=== PATIENT | female | born 1980 | race Caucasian/White ===

== ENCOUNTER 2016-06-29 08:00 | Inpatient (IN) | payer MEDICAID ==
[~2016-06-29] VITALS: Ht 152.4 cm; Wt 80.0 kg
[~2016-06-29 08:00] MED LIST: ACET500C5 PO; BISA10SU58 PR; HYDR-3498 PO; ONDA4TAB8 PO; POLY17PO6 PO; PREN1TAB17 PO; TYL500 PO
[2016-06-29 10:00] LABS: ADD SCAN DIFF NO
[2016-06-29] MEDS ORDERED: MISOPROSTOL 200 MCG TAB PR PRN (10:00)
[2016-06-29] MEDS ORDERED: OXYTOCIN 30 UNITS/LR 500 ML IV SCH ×2 (10:00)
[2016-06-29] MEDS ORDERED: LIDOCAINE 1% (MPF) 30 ML INJ INJ PRN (10:00)
[2016-06-29] MEDS ORDERED: METHYLERGONOVINE 0.2 MG INJ IM PRN (10:00)
[2016-06-29] MEDS ORDERED: CARBOPROST 250 MCG INJ IM PRN (10:00)
[2016-06-29] MEDS ORDERED: DINOPROSTONE 10 MG VAG SUPP VAG ONE (10:00)
[2016-06-29] MEDS ORDERED: LACTATED RINGER'S 1,000 ML IV PRN (10:00)
[2016-06-29] MEDS ORDERED: BUTORPHANOL 2 MG INJ IV PRN (10:00)
[2016-06-29] MEDS ORDERED: OXYTOCIN 30 UNITS/LR 500 ML IV PRN (10:00)
[2016-06-29 10:08] LABS: BASOPHILS % 0.1 % (0.0-2.0); EOSINOPHILS # 0.1 10^3/ul (0.0-0.5); EOSINOPHILS % 1.7 % (0.0-7.0); HEMATOCRIT 34.9 % (37.0-47.0); HEMOGLOBIN 11.5 g/dl (12.0-16.0); LYMPHOCYTES # 1.8 10^3/ul (0.8-2.9); LYMPHOCYTES % 21.7 % (15.0-51.0); MEAN CORPUSCULAR HEMOGLOBIN 30.3 pg (29.0-33.0); MEAN CORPUSCULAR VOLUME 92.1 fl (82.0-101.0); MONOCYTE # 0.9 10^3/ul (0.3-0.9); MONOCYTES % 11.1 % (0.0-11.0); NEUTROPHIL # 5.2 10^3/ul (1.6-7.5); NEUTROPHILS % 63.8 % (39.0-77.0); PLATELET COUNT 221 10^3/UL (140-415); RED BLOOD COUNT 3.79 10^6/ul (4.20-5.40); RED CELL DISTRIBUTION WIDTH 13.6 % (11.5-14.5); WHITE BLOOD COUNT 8.1 10^3/ul (4.8-10.8)
[2016-06-29] MEDS: LACTATED RINGER'S 1,000 ML IV SCH ×2 (10:28→21:07)
[2016-06-29 10:30] LABS: INR 1.04; PROTIME 13.6 Sec (12.2-14.2); PT RATIO 1.1
[2016-06-29 10:39] VITALS: Ht 152.4 cm; Wt 80.0 kg
--- NOTE | 2016-06-29 17:13 | HP ---
Date/Time of Note Date/Time of Note DATE: 06/29/16 TIME: 17:10 OB - History Hx of Present Free Text/Dictation admitted for elective induction Last Menstrual Period: Oct 02, 2015 Estimated Due Date: Jun 27, 2016 : 3 Para: 2 Care: Good Care Ultrasounds: Normal mid trimester US Obstetrical Complications: None Medical Complications: None Past Family/Social History * Past Medical, Surgical, Family and Obstetric Histories reviewed from chart. Blood Type: B+ Rubella: immune RPR/VDRL: Negative GBS Status: Negative HBsAG: Negative OB Admission Exam Physical Exam HEENT: WNL Heart: Rhythm Normal Lungs: Clear, Equal Abdomen: WNL Extremities: Normal Reflexes: Normal Cervical Dilatation: None Effacement: 0% Station: -3 Membranes: Intact Heart Rate: 140's Accelerations: Accelerations Present Decelerations: No Decelerations Last 72 hours Lab Results CBC & BMP 06/29/16 08:45 OB Assessment/Plan Reason for admission: induction of labor Other Assessment: term gestation Induction Method: per Misoprostol Protocol BEATRIZ HEREDIA MD Jun 29, 2016 17:13
[2016-06-29 17:54] VITALS: BP 115/71; PULSE 86; RESP 20
[2016-06-30] MEDS: LACTATED RINGER'S 1,000 ML IV SCH ×3 (04:22→18:31)
--- NOTE | 2016-06-30 16:41 | PN ---
Date/Time of Note Date/Time of Note DATE: 06/30/16 TIME: 16:39 OB Subjective Subjective Subjective No C/O labor pains OB Objective Objective Objective VSS P/E: unchanged Cx: 50% 3 cm -2 station : AROM: clear OB Assessment/Plan Reason for admission: induction of labor Other Assessment: term gestation Induction Method: per Pitocin Protocol BEATRIZ HEREDIA MD Jun 30, 2016 16:41
[2016-06-30] MEDS ORDERED: FENTAnyl 2MCG/ML-ROPIV 0.2% 100 ML ONE (16:50)
[2016-06-30] MEDS ORDERED: ONDANSETRON 4 MG INJ IV PRN (17:30)
[2016-06-30] MEDS ORDERED: FENTAnyl 2MCG/ML-ROPIV 0.2% 100 ML BAG EPI SCH (17:30)
[2016-06-30] MEDS ORDERED: NALOXONE (0.4 MG/ML) INJ IV PRN (17:30)
[2016-06-30] MEDS ORDERED: EPHEDrine SULFATE 50 MG/5 ML SYG IV PRN (17:30)
[2016-06-30] MEDS ORDERED: MINERAL OIL LIGHT 10 ML VIAL TOP ONE (20:30)
--- NOTE | 2016-06-30 20:43 | LDN ---
Date/Time of Note Date/Time of Note DATE: 06/30/16 TIME: 20:39 Delivery Summary of a viable over intact perineum Weeks of Gestation over 40 Placenta Delivered: Spontaneously, Intact & Complete Meconium: none Episiotomy?: No Perineal laceration: 2 Laceration repair: 2nd degree perineal laceration was repaired in layers with 2 0 Vicryl and 2 0 Chromic Anesthesia type: Epidural Estimated blood loss: 300 Sponge & Needle done & correct: Yes All needle counts correct: Yes Any foreign bodies felt in the: No Problems: Delivery Information Sex Sex: male Apgars 1 Minute: 9 5 Minute: 9 Suctioning Nose & mouth suctioned at bryce: Yes Delee suction performed: No Umbilical Cord Umbilical cord with: 3 Vessels Cord presentations: no nuchal cord Cord Blood was obtained: Yes Mother & Baby Disposition Disposition Mom & Baby to Maternity; Good: Yes (mother and baby were recovered in good condition ) Mom transferred to: Other (maternity ) Baby to NICU: No BEATRIZ HEREDIA MD Jun 30, 2016 20:43
[2016-06-30 23:00] VITALS: BP 108/65; PULSE 84; RESP 16
[2016-06-30] MEDS ORDERED: WITCH HAZEL/GLYCERIN PAD PR PRN (23:00)
[2016-06-30] MEDS ORDERED: ZOLPIDEM 5 MG TAB PO PRN (23:00)
[2016-06-30] MEDS ORDERED: OXYTOCIN 30 UNITS/LR 500 ML IV PRN (23:00)
[2016-06-30] MEDS ORDERED: MISOPROSTOL 200 MCG TAB PR PRN (23:00)
[2016-06-30] MEDS ORDERED: ACETAMINOPHEN/CODEINE #3 TAB PO PRN ×2 (23:00)
[2016-06-30] MEDS ORDERED: CARBOPROST 250 MCG INJ IM PRN (23:00)
[2016-06-30] MEDS ORDERED: METHYLERGONOVINE 0.2 MG INJ IM PRN (23:00)
[2016-06-30] MEDS: LACTATED RINGER'S 1,000 ML IV* SCH (23:00)
[2016-06-30] MEDS: SENNA/DOCUSATE NA (8.6MG/50MG) TAB PO SCH (23:00)
[2016-06-30] MEDS ORDERED: DIBUCAINE 1% 30 GM OINT PR PRN (23:00)
[2016-06-30] MEDS: CEPHALEXIN 500 MG CAP PO SCH (23:59)
[2016-06-30] MEDS: IBUPROFEN 600 MG TAB PO SCH (23:59)
[2016-07-01] MEDS: LANOLIN 7 GM TUBE TOP PRN
[2016-07-01] MEDS: BENZOCAINE 20% 56 ML SPRAY TOP PRN (00:01)
[2016-07-01 04:00] VITALS: BP 106/54; PULSE 83; RESP 18
[2016-07-01] MEDS: CEPHALEXIN 500 MG CAP PO SCH ×4 (05:46→23:39)
[2016-07-01] MEDS: IBUPROFEN 600 MG TAB PO SCH ×4 (05:46→23:39)
[2016-07-01] MEDS: LACTATED RINGER'S 1,000 ML IV* SCH ×2 (06:43→14:43)
[2016-07-01 08:00] VITALS: BP 99/64; PULSE 79; RESP 18
[2016-07-01 08:24] LABS: ADD SCAN DIFF NO
[2016-07-01 08:30] LABS: BASOPHILS % 0.1 % (0.0-2.0); EOSINOPHILS # 0.1 10^3/ul (0.0-0.5); EOSINOPHILS % 0.8 % (0.0-7.0); HEMATOCRIT 28.6 % (37.0-47.0); HEMOGLOBIN 9.6 g/dl (12.0-16.0); LYMPHOCYTES # 1.8 10^3/ul (0.8-2.9); LYMPHOCYTES % 14.8 % (15.0-51.0); MEAN CORPUSCULAR HEMOGLOBIN 30.7 pg (29.0-33.0); MEAN CORPUSCULAR HGB CONC 33.6 g/dl (32.0-37.0); MEAN CORPUSCULAR VOLUME 91.4 fl (82.0-101.0); MEAN PLATELET VOLUME 10.8 fl (7.4-10.4); MONOCYTE # 1.2 10^3/ul (0.3-0.9); MONOCYTES % 9.9 % (0.0-11.0); NEUTROPHIL # 8.9 10^3/ul (1.6-7.5); NEUTROPHILS % 73.9 % (39.0-77.0); PLATELET COUNT 201 10^3/UL (140-415); RED BLOOD COUNT 3.13 10^6/ul (4.20-5.40); RED CELL DISTRIBUTION WIDTH 13.6 % (11.5-14.5)
[2016-07-01] MEDS: SENNA/DOCUSATE NA (8.6MG/50MG) TAB PO SCH ×2 (09:00→20:35)
[2016-07-01] MEDS: MAGNESIUM HYDROXIDE 30ML CUP PO SCH ×2 (09:00→20:36)
[2016-07-01 12:22] VITALS: BP 100/63; PULSE 80; RESP 18
[2016-07-01 16:30] VITALS: BP 102/68; PULSE 88; RESP 18
[2016-07-01 20:00] VITALS: BP 93/62; PULSE 94; RESP 18
--- NOTE | 2016-07-01 22:17 | DS ---
Date/Time of Note Date/Time of Note home next day DATE: 07/01/16 TIME: 22:16 Obstetrical Discharge Record Final Diagnosis Final Diagnosis: Term delivered Other Final Diagnosis S/P vaginal delivery Vaginal Delivery Obstetrical Delivery: Spontaneous, Laceration, Repaired Complications Augmentation: Yes Induction: Yes Condition on Discharge Physical Assessment Last Vitals: see nurses notes Voiding: Yes Bowel Movement: Yes Breast: Soft, non-tender, Filling Fundus: Firm Abdomen and Incision: soft BS + Episiotomy: NA Perineum: healing Calf Tenderness: No Patient Condition: Good BEATRIZ HEREDIA MD Jul 01, 2016 22:17
--- NOTE | 2016-07-01 22:18 | PD.PPDC ---
[facility] Discharge Instruction Provider Information Physician Information 36 y/o female had vaginal delivery Diagnosis Final Diagnosis: S/P vaginal delivery Condition Patient Condition: Good Diet Diet: Resume Regular Diet Activity/Restrictions Activity: Normal Activity May Shower Restrictions: Nothing in the Vagina Return to Work or School: August 17, 2016 Follow-up Follow-up with Physician: 4, Week/Weeks Return to clinic for OB Instructions: Depression BEATRIZ HEREDIA MD Jul 01, 2016 22:18
[2016-07-01] MEDS ORDERED: IBUP-1542 PO (22:19)
[2016-07-02 03:30] VITALS: BP 103/62; PULSE 76; RESP 18
[2016-07-02] MEDS: IBUPROFEN 600 MG TAB PO SCH ×2 (05:43→12:14)
[2016-07-02] MEDS: CEPHALEXIN 500 MG CAP PO SCH ×2 (05:43→12:14)
[2016-07-02 07:45] VITALS: BP 101/68; PULSE 76; RESP 18
[2016-07-02] MEDS ORDERED: VARICELLA VACCINE LIVE/PF 1,350 UNIT/0.5 ML ML SC* ONE (09:00)
[2016-07-02] MEDS ORDERED: DIPHTH/TET/ACEL PERTUSS (ADULT) 0.5 ML VIAL IM* ONE (09:00)
[2016-07-02] MEDS ORDERED: MEASLES,MUMPS,RUBELLA VACCINE INJ SC* ONE (09:00)
[2016-07-02] MEDS: SENNA/DOCUSATE NA (8.6MG/50MG) TAB PO SCH (09:09)
[2016-07-02] MEDS: MAGNESIUM HYDROXIDE 30ML CUP PO SCH (09:09)
[2016-07-02] MEDS: LANOLIN 7 GM TUBE TOP PRN (16:39)
[2016-07-02] MEDS: BENZOCAINE 20% 56 ML SPRAY TOP PRN (16:39)
== END 2016-07-02 17:10 | disposition home or self-care (01) | DRG 775 ==
LOC: L-D 08:29 → PP1 06-30 22:41
PROVIDERS: ADMIT Obstetrics & Gynecology; ATTEND Obstetrics & Gynecology
PROC: 10E0XZZ Delivery of Products of Conception, External Approach (ICD-10-PCS; principal; 2016-06-30)
PROC: 0KQM0ZZ Repair Perineum Muscle, Open Approach (ICD-10-PCS; 2016-06-30)
DX: O48.0 Post-term pregnancy (principal); O70.1 Second degree perineal laceration during delivery; Z3A.40 40 weeks gestation of pregnancy; Z37.0 Single live birth
CPT/HCPCS: 62319; 85025; 85610; 85730; 86592; 86900; 86901; 90715; 90716; J2590; J3010; J7120

== ENCOUNTER 2018-07-15 19:59 | Emergency (ER) | payer MEDICAID ==
[~2018-07-15] VITALS: Wt 72.4 kg
[~2018-07-15 19:59] MED LIST changes: -ACET500C5 PO; -BISA10SU58 PR; -HYDR-3498 PO; +IBUP-1542 PO; -ONDA4TAB8 PO; -POLY17PO6 PO; -TYL500 PO
[2018-07-15 20:07] VITALS: BP 131/80; PULSE 71; RESP 18
[2018-07-15] MEDS ORDERED: IBUP-1542 PO (23:06)
[2018-07-15] MEDS ORDERED: ACET-141 PO (23:06)
[2018-07-15] MEDS ORDERED: FLUT16SP17 NASAL (23:06)
--- NOTE | 2018-07-15 23:12 | ERD ---
ER Documentation Chief Complaint Chief Complaint sore throat x 4 weeks HPI 38-year-old female presents for sore throat times 4 weeks. She also states that she has nasal congestion. She denies fevers or chills. She is also having headaches. She states that she was given azithromycin a few weeks ago and the headache improved however she states that she still has the nasal congestion and sore throat. She denies cough. Denies chest pain or shortness of breath. Further denies abdominal pain nausea or vomiting. No other treatments tried at home. ROS All systems reviewed and are negative except as per history of present illness. Medications Home Meds Active Scripts Ibuprofen* (Motrin*) 600 Mg Tab, 600 MG PO Q6H PRN for PAIN AND OR ELEVATED TEMP, #30 TAB Prov:NICHOLE QUEVEDO DO 07/15/18 Acetaminophen* (Acetaminophen*) 500 MG Extra Strength Tablet, 500 MG PO Q4H PRN for PAIN AND OR ELEVATED TEMP, #30 TAB Prov:NICHOLE QUEVEDO DO 07/15/18 Fluticasone Propionate* (Fluticasone Propionate* Nasal) 50 Mcg/[place] - 16 Gm [place].susp, 1 SPRAY NASAL DAILY PRN for nasal congestion for 10 Days, #1 BOTTLE TO EACH NOSTRIL Prov:NICHOLE QUEVEDO DO 07/15/18 Ibuprofen* (Ibuprofen*) 600 Mg Tablet, 600 MG PO Q6, #30 TAB 0 Refills Prov:BEATRIZ HEREDIA MD 07/01/16 Reported Medications Vit-Iron Fumarate-FA ( Tablet) 1 Each Tablet, 1 EACH PO DAILY 09/27/12 Allergies Allergies: Coded Allergies: fluconazole (Verified Allergy, Unknown, tremors, 01/20/15) PMhx/Soc History of Surgery: No Anesthesia Reaction: No Hx Neurological Disorder: No Hx Respiratory Disorders: No Hx Cardiac Disorders: No Hx Psychiatric Problems: No Hx Miscellaneous Medical Probl: No Hx Alcohol Use: No Hx Substance Use: No Hx Tobacco Use: No Physical Exam Vitals Vital Signs Date Temp Pulse Resp B/P (MAP) Pulse Ox O2 O2 Flow FiO2 Time Delivery Rate 07/15/18 99.4 71 18 131/80 100 20:07 (97) Physical Exam Const: No acute distress Head: Atraumatic Eyes: Normal Conjunctiva ENT: Normal External Ears, bilateral tympanic membrane intact without erythema or bulging noted, nasal mucosa with mild erythema, Mouth examination normal, no tonsillar swelling or exudate noted Neck: Full range of motion. No meningismus. Resp: Clear to auscultation bilaterally, no wheezing, rales, rhonchi Cardio: Regular rate and rhythm, no murmurs Skin: No petechiae or rashes Ext: No cyanosis, or edema Neur: Awake and alert Psych: Normal Mood and Affect Procedures/MDM Medical Decision Making: Differential diagnosis includes but not limited to upper respiratory infection, pneumonia, sepsis, meningitis, influenza, nasal allergy Patient appeared well on physical examination, nontoxic appearing. Lungs were clear to auscultation bilaterally. There is low suspicion for pneumonia, sepsis, meningitis. Physical examination consistent with a nasal allergy. Patient given prescription for supportive medication(s). Patient advised to follow up with PCP in 1-2 days. Patient advised to return to ED for new or worsening symptoms. Patient stable on discharge from the ED. Disclaimer: Inadvertent spelling and grammatical errors are likely due to EHR/d ictation software use and do not reflect on the overall quality of patient care. Also, please note that the electronic time recorded on this note does not necessarily reflect the actual time of the patient encounter. Departure Diagnosis: Primary Impression: Nasal congestion Additional Impression: Sore throat Condition: Fair Patient Instructions: Self-Care for Sore Throats, Fluticasone Propionate Nasal spray Referrals: [facility] YOU HAVE RECEIVED A MEDICAL SCREENING EXAM AND THE RESULTS INDICATE THAT YOU DO NOT HAVE A CONDITION THAT REQUIRES URGENT TREATMENT IN THE EMERGENCY DEPARTMENT. FURTHER EVALUATION AND TREATMENT OF YOUR CONDITION CAN WAIT UNTIL YOU ARE SEEN IN YOUR DOCTORS OFFICE WITHIN THE NEXT 1-2 DAYS. IT IS YOUR RESPONSIBILITY TO MAKE AN APPOINTMENT FOR FOLOW-UP CARE. IF YOU HAVE A PRIMARY DOCTOR --you should call your primary doctor and schedule an appointment IF YOU DO NOT HAVE A PRIMARY DOCTOR YOU CAN CALL OUR PHYSICIAN REFERRAL HOTLINE AT IF YOU CAN NOT AFFORD TO SEE A PHYSICIAN YOU CAN CHOSE FROM THE FOLLOWING [facility] [address] [facility] [address] [facility] [address] [facility] [address] [facility]. [facility] [address] [facility]. [facility] [address] Additional Instructions: Llame al doctor MAANA y melanie javid NOÉ PARA DENTRO DE 1-2 JEFFERY.Dgale a la secretaria que nosotros le instruimos hacer esta noé.Avise o llame si avalos condicin se empeora antes de la noé. Regresa aqui si peor o no mejor. NICHOLE QUEVEDO DO Jul 15, 2018 23:12
== END 2018-07-15 23:28 | disposition home or self-care (01) ==
LOC: FTE 19:59
DX: J02.9 Acute pharyngitis, unspecified (principal)
CPT/HCPCS: 99283

== ENCOUNTER 2018-07-29 13:30 | Emergency (ER) | payer MEDICAID ==
[~2018-07-29] VITALS: Wt 78.0 kg
[~2018-07-29 13:30] MED LIST changes: +ACET-141 PO; +FLUT16SP17 NASAL
[2018-07-29 13:35] VITALS: BP 118/69
[2018-07-29] MEDS ORDERED: FLUT9.9S NASAL (14:09)
[2018-07-29] MEDS ORDERED: PRED20TA PO (14:09)
[2018-07-29] MEDS ORDERED: CETI10CA PO (14:09)
--- NOTE | 2018-07-29 14:19 | ERD ---
ER Documentation Chief Complaint Chief Complaint SORE THROAT X 1 MONTH HPI Patient is a 38-year-old female who presents the ER for concerns of throat pain times 1 month. Patient states she has nasal congestion feels pressure in her left sinus and behind her eye. Patient states she often has postnasal drip. Patient denies any fevers or chills. Patient did take antibiotics recently which did not help with her symptoms. Patient denies any cough, rhinorrhea, abdominal pain, nausea, vomiting, chest pain or shortness of breath. ROS All systems reviewed and are negative except as per history of present illness. Medications Home Meds Active Scripts Prednisone* (Prednisone*) 20 Mg Tab, 40 MG PO DAILY for 5 Days, TAB Prov:JIM ESTES PA-C 07/29/18 Cetirizine Hcl* (Zyrtec*) 10 Mg Capsule, 10 MG PO DAILY, #10 TAB.CHEW Prov:JIM ESTES PA-C 07/29/18 Fluticasone Propionate (Flonase Allergy Relief) [address] [place]susp, 1 SPRAY NASAL BID, #1 BOTTLE TO EACH NOSTRIL Prov:JIM ESTES PA-C 07/29/18 Ibuprofen* (Motrin*) 600 Mg Tab, 600 MG PO Q6H PRN for PAIN AND OR ELEVATED TEMP, #30 TAB Prov:NICHOLE QUEVEDO DO 07/15/18 Acetaminophen* (Acetaminophen*) 500 MG Extra Strength Tablet, 500 MG PO Q4H PRN for PAIN AND OR ELEVATED TEMP, #30 TAB Prov:NICHOLE QUEVEDO DO 07/15/18 Fluticasone Propionate* (Fluticasone Propionate* Nasal) 50 Mcg/[place] - [address] [place]susp, 1 SPRAY NASAL DAILY PRN for nasal congestion for 10 Days, #1 BOTTLE TO EACH NOSTRIL Prov:NICHOLE QUEVEDO DO 07/15/18 Ibuprofen* (Ibuprofen*) 600 Mg Tablet, 600 MG PO Q6, #30 TAB 0 Refills Prov:BEATRIZ HEREDIA MD 07/01/16 Reported Medications Vit-Iron Fumarate-FA ( Tablet) 1 Each Tablet, 1 EACH PO DAILY 09/27/12 Allergies Allergies: Coded Allergies: fluconazole (Verified Allergy, Unknown, tremors, 01/20/15) PMhx/Soc History of Surgery: No Anesthesia Reaction: No Hx Neurological Disorder: No Hx Respiratory Disorders: No Hx Cardiac Disorders: No Hx Psychiatric Problems: No Hx Miscellaneous Medical Probl: No Hx Alcohol Use: No Hx Substance Use: No Hx Tobacco Use: No FmHx Family History: No diabetes Physical Exam Vitals Vital Signs Date Temp Pulse Resp B/P (MAP) Pulse Ox O2 O2 Flow FiO2 Time Delivery Rate 07/29/18 99.2 111 20 118/69 99 13:35 (85) Physical Exam GENERAL: Well-developed, well-nourished female. Appears in no acute distress. HEAD: Normocephalic, atraumatic. No deformities or ecchymosis. EYE: Pupils equal, round, and reactive to light. EOMs intact. No conjunctival erythema. No eye discharge. ENT: External ear without any masses or tenderness. Auditory canals clear bilaterally. TM visualized bilaterally, non-erythematous, non-bulging. Bilateral medullary sinuses are tender to palpation. Nasal mucosa pink with no discharge. Oropharynx is pink without any tonsillar erythema or exudates. No uvula deviation. No kissing tonsils. Cobblestoning noted in the posterior oropharynx. NECK: Supple. No meningismus. Normal ROM of the neck. No cervical lymphadenopathy. LUNG: Clear to auscultation bilaterally. No rhonchi, wheezing, rales or coarse breath sounds. HEART: Regular rate and rhythm. No murmurs, rubs or gallops. EXTREMITES: Equal pulses bilaterally. No peripheral clubbing, cyanosis or edema. No unilateral leg swelling. NEUROLOGIC: Alert and oriented to person, place and time. Moving all four extremities. 5/5 strength in all extremities. Normal speech. Steady gait. SKIN: Normal color. Warm and dry. No rashes or lesions. Procedures/MDM MEDICAL DECISION MAKING: This is a 38-year-old female presents the ER for concerns of intermittent throat pain, nasal congestion and postnasal drip for the last month. Vital signs were reviewed. Patient was afebrile. Patient was not hypoxic. ENT exam had cobblestoning on the posterior oropharynx.. Lung exam was normal. Given these findings, the patients presentation is most consistent with allergic rhinitis. Low suspicion for pneumonia, meningitis, sinusitis, otitis externa, acute otitis media, strep pharyngitis, epiglottitis or peritonsillar abscess. Patient was nontoxic, [id number] prior to discharge. PRESCRIPTIONS: Zyrtec, Flonase, prednisone DISCHARGE: At this time, patient is stable for discharge and outpatient management. Supportive therapies such as OTC throat lozenges, salt water gurgles, popsicles and jello discussed. I have instructed the patient to follow-up with his/her primary care physician in 1-2 days. I have instructed the patient to promptly return to the ER for any new or worsening symptoms including increased pain, swelling, fever, nausea, vomiting, weakness or difficulty breathing. The patient and/or family expressed understanding of and agreement with this plan. All questions were answered. Home care instructions were provided. Disclaimer: Inadvertent spelling and grammatical errors are likely due to [employer]/dictation software use and do not reflect on the overall quality of patient care. Also, please note that the electronic time recorded on this note does not necessarily reflect the actual time of the patient encounter. Departure Diagnosis: Primary Impression: Allergic rhinitis Allergic rhinitis trigger: unspecified Allergic rhinitis seasonality: unspecified Qualified Codes: J30.9 - Allergic rhinitis, unspecified Condition: Fair Patient Instructions: Allergic Rhinitis Referrals: [facility] YOU HAVE RECEIVED A MEDICAL SCREENING EXAM AND THE RESULTS INDICATE THAT YOU DO NOT HAVE A CONDITION THAT REQUIRES URGENT TREATMENT IN THE EMERGENCY DEPARTMENT. FURTHER EVALUATION AND TREATMENT OF YOUR CONDITION CAN WAIT UNTIL YOU ARE SEEN IN YOUR DOCTORS OFFICE WITHIN THE NEXT 1-2 DAYS. IT IS YOUR RESPONSIBILITY TO MAKE AN APPOINTMENT FOR FOLOW-UP CARE. IF YOU HAVE A PRIMARY DOCTOR --you should call your primary doctor and schedule an appointment IF YOU DO NOT HAVE A PRIMARY DOCTOR YOU CAN CALL OUR PHYSICIAN REFERRAL HOTLINE AT IF YOU CAN NOT AFFORD TO SEE A PHYSICIAN YOU CAN CHOSE FROM THE FOLLOWING [facility] [address] [facility]. [facility] [address] [facility]. [facility] [address] [facility] [address] [facility]. [facility] [address] [facility]. [facility]. [address] [facility]. [facility] YOU HAVE RECEIVED A MEDICAL SCREENING EXAM AND THE RESULTS INDICATE THAT YOU DO NOT HAVE A CONDITION THAT REQUIRES URGENT TREATMENT IN THE EMERGENCY DEPARTMENT. FURTHER EVALUATION AND TREATMENT OF YOUR CONDITION CAN WAIT UNTIL YOU ARE SEEN IN YOUR DOCTORS OFFICE WITHIN THE NEXT 1-2 DAYS. IT IS YOUR RESPONSIBILITY TO MAKE AN APPOINTMENT FOR FOLOW-UP CARE. IF YOU HAVE A PRIMARY DOCTOR --you should call your primary doctor and schedule and appointment IF YOU DO NOT HAVE A PRIMARY DOCTOR YOU CAN CALL OUR PHYSICIAN REFERRAL HOTLINE AT . IF YOU CAN NOT AFFORD TO SEE A PHYSICIAN YOU CAN CHOSE FROM THE FOLLOWING [facility] INSTITUTIONS: [facility] [address] [place] [address] [facility] [address] [place] [address] [facility] [address] [place] [address] Additional Instructions: Llame al doctor MAANA y melanie javid NOÉ PARA DENTRO DE 1-2 JEFFERY.Dgale a la secretaria que nosotros le instruimos hacer esta noé.Avise o llame si avalos condicin se empeora antes de la noé. Regresa aqui si peor o no mejor. JIM ESTES PA-C Jul 29, 2018 14:19
[2018-07-29 14:45] VITALS: PULSE 78; RESP 16
== END 2018-07-29 14:45 | disposition home or self-care (01) ==
LOC: FTE 13:30
DX: J30.9 Allergic rhinitis, unspecified (principal)
CPT/HCPCS: 99283

== ENCOUNTER 2018-09-28 20:18 | Emergency (ER) | payer MEDICAID ==
[~2018-09-28] VITALS: Ht 162.6 cm; Wt 73.3 kg
[~2018-09-28 20:18] MED LIST changes: +CETI10CA PO; +FLUT9.9S NASAL; +PRED20TA PO
[2018-09-28 20:31] VITALS: BP 117/66; PULSE 81; RESP 16; Ht 162.6 cm; Wt 73.3 kg
[2018-09-28] MEDS ORDERED: KETOROLAC 30 MG INJ IM STA (21:57)
[2018-09-28] MEDS ORDERED: DEXAMETHASONE 10 MG/ML 1 ML INJ IM ONE (22:00)
--- NOTE | 2018-09-28 22:11 | ERD ---
ER Documentation Chief Complaint Chief Complaint PT REPORTS l BACK PAIN RADIATING DOWN LEG X 1 WEEK HPI 38-year-old female with no reported past medical history, H. pylori history who presents with complaint of left-sided back pain with radiation to the right knee. Describes sharp pain that started about 1 week ago and acutely worsened over the past couple days. She otherwise denies urinary or bowel incontinence, lower extremity paresthesias or weakness. Has not taken any medications for pain symptoms. She otherwise denies fever, chills, rash, nausea, vomiting, d iarrhea, abdominal pain, urinary symptoms such as burning itching or frequency. At time examination patient able to walk in examination room without significant difficulty. ROS All systems reviewed and are negative except as per history of present illness. Medications Home Meds Active Scripts Prednisone* (Prednisone*) 20 Mg Tab, 40 MG PO DAILY for 4 Days, TAB Prov:MT BARNES PA-C 09/28/18 Naproxen* (Naprosyn*) 500 Mg Tablet, 500 MG PO BID PRN for PAIN AND/OR INFLAMMATION, #30 TAB Prov:MT BARNES PA-C 09/28/18 Prednisone* (Prednisone*) 20 Mg Tab, 40 MG PO DAILY for 5 Days, TAB Prov:JIM ESTES PA-C 07/29/18 Cetirizine Hcl* (Zyrtec*) 10 Mg Capsule, 10 MG PO DAILY, #10 TAB.CHEW Prov:JIM ESTES PA-C 07/29/18 Fluticasone Propionate (Flonase Allergy Relief) 9.9 Ml [place].susp, 1 SPRAY NASAL BID, #1 BOTTLE TO EACH NOSTRIL Prov:JIM ESTES PA-C 07/29/18 Ibuprofen* (Motrin*) 600 Mg Tab, 600 MG PO Q6H PRN for PAIN AND OR ELEVATED TEMP, #30 TAB Prov:NICHOLE QUEVEDO DO 07/15/18 Acetaminophen* (Acetaminophen*) 500 MG Extra Strength Tablet, 500 MG PO Q4H PRN for PAIN AND OR ELEVATED TEMP, #30 TAB Prov:NICHOLE QUEVEDO DO 07/15/18 Fluticasone Propionate* (Fluticasone Propionate* Nasal) 50 Mcg/[place] - 16 Gm [place].susp, 1 SPRAY NASAL DAILY PRN for nasal congestion for 10 Days, #1 BOTTLE TO EACH NOSTRIL Prov:NICHOLE QUEVEDO DO 07/15/18 Ibuprofen* (Ibuprofen*) 600 Mg Tablet, 600 MG PO Q6, #30 TAB 0 Refills Prov:BEATRIZ HEREDIA MD 07/01/16 Reported Medications Vit-Iron Fumarate-FA ( Tablet) 1 Each Tablet, 1 EACH PO DAILY 09/27/12 Allergies Allergies: Coded Allergies: fluconazole (Verified Allergy, Unknown, tremors, 01/20/15) PMhx/Soc Medical and Surgical Hx: pt denies Medical Hx, pt denies Surgical Hx History of Surgery: No Anesthesia Reaction: No Hx Neurological Disorder: No Hx Respiratory Disorders: No Hx Cardiac Disorders: No Hx Psychiatric Problems: No Hx Miscellaneous Medical Probl: No Hx Alcohol Use: No Hx Substance Use: No Hx Tobacco Use: No Smoking Status: Never smoker FmHx Family History: No diabetes, No coronary disease, No other Physical Exam Vitals Vital Signs Date Temp Pulse Resp B/P (MAP) Pulse Ox O2 O2 Flow FiO2 Time Delivery Rate 09/28/18 99.3 81 16 117/66 100 20:31 (83) Physical Exam I have reviewed the triage vital signs. Const: Well nourished, well developed, appears stated age Eyes: PERRL, no conjunctival injection HENT: NCAT, Neck supple without meningismus CV: RRR, Warm, well-perfused extremities RESP: CTAB, Unlabored respiratory effort GI: soft, non-tender, non-distended, no masses MSK: No gross deformities appreciated, negative straight leg test. Full range of motion to back, no tenderness over spinal processes, no rash Skin: Warm, dry. No rashes Neuro: grossly non focal Psych: Appropriate mood and affect. Results 24 hrs Laboratory Tests Test 09/28/18 21:36 Bedside Urine pH (LAB) 7.0 Bedside Urine Protein (LAB) Negative Bedside Urine Glucose (UA) Negative Bedside Urine Ketones (LAB) Negative Bedside Urine Blood Negative Bedside Urine Nitrite (LAB) Negative Bedside Urine Leukocyte Esterase (L 1+ POC Beta HCG, Qualitative NEGATIVE Current Medications Medications Dose Sig/Jennifer Start Time Status Last (Trade) Ordered Route PRN Stop Time Admin Dose Reason Admin Ketorolac 30 mg ONCE STAT 09/28/18 DC 09/28/18 Tromethamine IM 21:57 22:16 (Toradol) 09/28/18 21:59 10 mg ONCE ONCE 09/28/18 DC 09/28/18 Dexamethasone IM 22:00 22:16 (Decadron) 09/28/18 22:01 Procedures/MDM 38-year-old female presents with complaint of lower back pain. Low suspicion for acute cord compression or cauda equina at this time, given presentation and symptoms, including epidural abscess or hematoma. Patient has no history of malignancy, active or distant history. Patient has no unexplained weight loss. No recent fevers, rigors, malaise, or recent infection. No history of IVDU or skin-popping. Patient does not have any history concerning for saddle anesthesia/perianal sensory loss or complaining of decreased rectal tone. Patient does not have urinary retention or inability to control urine from overflow. Patient has no tenderness overlying spinous process. Patient has no focal weakness on examination. ED course: Toradol, Decadron, will discharge with a short course of steroids, appropriate pain medications. Strict return precautions explained in detail. Given exam and history, low suspicion for cord compression, cauda equina, epidural abscess/hematoma. Distally neurovascularly intact. Query likely musculoskeletal component. Discussed pain control,and follow up with PMD. Cautious return precautions discussed w/ full understanding DISPOSITION PLAN: We discussed follow up with the patient's primary care doctor within 24 to 48 hours. Patient counseled regarding my diagnostic impression and care plan. Prior to discharge all questions answered. Pt agrees with treatment plan and understands strict return precautions. Precautionary instructions provided including instructions to return to the ER if not improving or for any worsening or changing symptoms or concerns. Disclaimer: Inadvertent spelling and grammatical errors are likely due to EHR/dictation software use and do not reflect on the overall quality of patient care. Also, please note that the electronic time recorded on this note does not necessarily reflect the actual time of the patient encounter. Departure Diagnosis: Primary Impression: Back pain Condition: Stable Patient Instructions: Back Pain (Acute Or Chronic) Additional Instructions: Call your primary care doctor TOMORROW for an appointment during the next 2-3 days.See the doctor sooner or return here if your condition worsens before your appointment time. MT BARNES PA-C Sep 28, 2018 22:10
[2018-09-28] MEDS ORDERED: PRED20TA PO (22:13)
[2018-09-28] MEDS ORDERED: NAPR-985 PO (22:13)
[2018-09-28] MEDS ORDERED: CEPH-443 PO (23:21)
== END 2018-09-28 23:29 | disposition home or self-care (01) ==
LOC: FTE 20:18
DX: M54.5 Low back pain (principal)
CPT/HCPCS: 81001; 81025; 96372; J1100; J1885; Z7502; 81003

== ENCOUNTER 2018-10-03 08:34 | Emergency (ER) | payer MEDICAID ==
[~2018-10-03] VITALS: Ht 160 cm; Wt 71.9 kg
[~2018-10-03 08:34] MED LIST changes: +CEPH-443 PO; +NAPR-985 PO
[2018-10-03 08:40] VITALS: RESP 18; Ht 160 cm; Wt 71.9 kg
[2018-10-03] MEDS ORDERED: SOD CHLORIDE 0.9% 1,000 ML IV STA (09:00)
[2018-10-03] MEDS ORDERED: ONDANSETRON 4 MG INJ IV STA (09:00)
[2018-10-03] MEDS ORDERED: KETOROLAC 30 MG INJ IV STA (09:00)
[2018-10-03] MEDS ORDERED: FAMOTIDINE 20 MG INJ IV STA (09:00)
[2018-10-03] MEDS ORDERED: SOD CHLORIDE 0.9% 100 ML ONE (10:06)
[2018-10-03] MEDS ORDERED: IOHEXOL 300MG/ML 150 ML BTL ONE (10:06)
[2018-10-03] MEDS ORDERED: NAPR-985 PO (10:41)
[2018-10-03] MEDS ORDERED: MED4DP PO (10:41)
[2018-10-03] MEDS ORDERED: CYCL10TA7 PO (10:41)
[2018-10-03] MEDS ORDERED: HYDR-4011 PO (10:41)
[2018-10-03 10:53] VITALS: BP 113/68; PULSE 81
--- NOTE | 2018-10-03 11:20 | ERD ---
ER Documentation Chief Complaint Chief Complaint left lower back pain radiating to lower abdomen x 10 days, taking antibioti HPI 38-year-old female presenting with left lower back pain radiating to the left lower abdomen along with flank. She states is been going for about 10 days. She has a history of gastritis. She states she has no dysuria. She is currently taking antibiotics for potential urine infection however she states the pain has not alleviated. She does have some lower back pain that is exacerbated with movement. Denies any numbness or tingling down her legs. Denies other medical problems. NKDA. Surgical history denies. Social history denies ROS All systems reviewed and are negative except as per history of present illness. Medications Home Meds Active Scripts Methylprednisolone* (Medrol* DOSE PACK) 4 Mg/Dose-Pack Tab.ds.pk, 4 MG PO . DIRECTED, #1 PACKET Prov:AYDEE PENA-C 10/03/18 Cyclobenzaprine Hcl* (Cyclobenzaprine Hcl*) 10 Mg Tablet, 10 MG PO TID, #15 TAB Prov:AYDEE PENA-C 10/03/18 Naproxen* (Naprosyn*) 500 Mg Tablet, 500 MG PO BID PRN for PAIN AND/OR INFLAMMATION, #30 TAB Prov:AYDEE PENAC 10/03/18 Hydrocodone/Acetaminophen ([place] 5-325 Tablet) 1 Each Tablet, 1 TAB PO Q6H PRN for PAIN, #7 TAB Prov:AYDEE PENAC 10/03/18 Cephalexin* (Keflex*) 500 Mg Capsule, 500 MG PO BID for 7 Days, CAP Prov:MT BARNES-C 09/28/18 Prednisone* (Prednisone*) 20 Mg Tab, 40 MG PO DAILY for 4 Days, TAB Prov:MT BARNES-C 09/28/18 Naproxen* (Naprosyn*) 500 Mg Tablet, 500 MG PO BID PRN for PAIN AND/OR INFLAMMATION, #30 TAB Prov:MT BARNES-C 09/28/18 Prednisone* (Prednisone*) 20 Mg Tab, 40 MG PO DAILY for 5 Days, TAB Prov:JIM ESTES-C 07/29/18 Cetirizine Hcl* (Zyrtec*) 10 Mg Capsule, 10 MG PO DAILY, #10 TAB.CHEW Prov:JIM ESTES PA-C 07/29/18 Fluticasone Propionate (Flonase Allergy Relief) 9.9 Ml [place].susp, 1 SPRAY NASAL BID, #1 BOTTLE TO EACH NOSTRIL Prov:JIM ESTES PA-C 07/29/18 Ibuprofen* (Motrin*) 600 Mg Tab, 600 MG PO Q6H PRN for PAIN AND OR ELEVATED TEMP, #30 TAB Prov:NICHOLE QUEVEDO DO 07/15/18 Acetaminophen* (Acetaminophen*) 500 MG Extra Strength Tablet, 500 MG PO Q4H PRN for PAIN AND OR ELEVATED TEMP, #30 TAB Prov:NICHOLE QUEVEDO DO 07/15/18 Fluticasone Propionate* (Fluticasone Propionate* Nasal) 50 Mcg/[place] - 16 Gm [place].susp, 1 SPRAY NASAL DAILY PRN for nasal congestion for 10 Days, #1 BOTTLE TO EACH NOSTRIL Prov:NICHOLE QUEVEDO DO 07/15/18 Ibuprofen* (Ibuprofen*) 600 Mg Tablet, 600 MG PO Q6, #30 TAB 0 Refills Prov:BEATRIZ HEREDIA MD 07/01/16 Reported Medications Vit-Iron Fumarate-FA ( Tablet) 1 Each Tablet, 1 EACH PO DAILY 09/27/12 Allergies Allergies: Coded Allergies: fluconazole (Verified Allergy, Unknown, tremors, 01/20/15) PMhx/Soc History of Surgery: No Anesthesia Reaction: No Hx Neurological Disorder: No Hx Respiratory Disorders: No Hx Cardiac Disorders: No Hx Psychiatric Problems: No Hx Miscellaneous Medical Probl: No Hx Alcohol Use: No Hx Substance Use: No Hx Tobacco Use: No Smoking Status: Never smoker FmHx Family History: No diabetes, No coronary disease, No other Physical Exam Vitals Vital Signs Date Temp Pulse Resp B/P (MAP) Pulse Ox O2 O2 Flow FiO2 Time Delivery Rate 10/03/18 81 113/68 10:53 (83) 10/03/18 98.1 85 18 128/62 100 08:40 (84) Physical Exam GENERAL: The patient is well-appearing, well-nourished, in no acute distress CHEST: Clear to auscultation bilaterally. There are no rales, wheezes or rhonchi. HEART: Regular rate and rhythm. No murmurs, clicks, rubs or gallops. ABDOMEN:Soft, nontender and nondistended. Good bowel sounds. No rebound or guarding. No gross peritonitis. No gross organomegaly or masses. BACK: No midline or flank tenderness. EXTREMITIES: Equal pulses bilaterally. There is no peripheral clubbing, cyanosis or edema. No focal swelling or erythema. Full range of motion. Grossly neurovascularly intact. NEUROLOGIC: Alert and oriented. Cranial nerves II through XII intact. Motor strength in all 4 extremities with 5 out of 5 strength. Sensation grossly intact. Normal speech and gait. SKIN: There is no apparent rash or petechiae. The skin is warm and dry. Result Diagram: 10/03/1812 10/03/1812 Results 24 hrs Laboratory Tests Test 10/03/18 09:12 10/03/18 09:16 White Blood Count 7.1 10^3/ul Red Blood Count 4.58 10^6/ul Hemoglobin 13.6 g/dl Hematocrit 41.2 % Mean Corpuscular Volume 90.0 fl Mean Corpuscular Hemoglobin 29.7 pg Mean Corpuscular Hemoglobin Concent 33.0 g/dl Red Cell Distribution Width 12.4 % Platelet Count 254 10^3/UL Mean Platelet Volume 10.5 fl Immature Granulocytes % 0.300 % Neutrophils % 61.4 % Lymphocytes % 27.6 % Monocytes % 8.7 % Eosinophils % 1.6 % Basophils % 0.4 % Nucleated Red Blood Cells % 0.0 /100WBC Immature Granulocytes # 0.020 10^3/ul Neutrophils # 4.4 10^3/ul Lymphocytes # 2.0 10^3/ul Monocytes # 0.6 10^3/ul Eosinophils # 0.1 10^3/ul Basophils # 0.0 10^3/ul Nucleated Red Blood Cells # 0.0 10^3/ul Urine Color YELLOW Urine Clarity SLIGHTLY CLOUDY Urine pH 7.0 Urine Specific [place] 1.009 Urine Ketones NEGATIVE mg/dL Urine Nitrite NEGATIVE mg/dL Urine Bilirubin NEGATIVE mg/dL Urine Urobilinogen NEGATIVE mg/dL Urine Leukocyte Esterase NEGATIVE Yue/ul Urine Microscopic RBC 3 /HPF Urine Microscopic WBC 1 /HPF Urine Squamous Epithelial Cells FEW /HPF Urine Bacteria FEW /HPF Urine Hemoglobin NEGATIVE mg/dL Urine Glucose NEGATIVE mg/dL Urine Total Protein NEGATIVE mg/dl Sodium Level 140 mmol/L Potassium Level 3.8 mmol/L Chloride Level 106 mmol/L Carbon Dioxide Level 24 mmol/L Anion Gap 10 Blood Urea Nitrogen 14 mg/dl Creatinine 0.68 mg/dl Est Glomerular Filtrat Rate mL/min > 60 mL/min Glucose Level 94 mg/dl Calcium Level 9.3 mg/dl Total Bilirubin 0.7 mg/dl Direct Bilirubin 0.00 mg/dl Indirect Bilirubin 0.7 mg/dl Aspartate Amino Transf (AST/SGOT) 16 IU/L Alanine Aminotransferase (ALT/SGPT) 19 IU/L Alkaline Phosphatase 54 IU/L Total Protein 7.6 g/dl Albumin 4.5 g/dl Globulin 3.10 g/dl Albumin/Globulin Ratio 1.45 Lipase 89 U/L POC Beta HCG, Qualitative NEGATIVE Current Medications Medications Dose Sig/Jennifer Start Time Status Last (Trade) Ordered Route PRN Stop Time Admin Dose Reason Admin Sodium 1,000 ml @ Q1H STAT 10/03/18 DC 10/03/18 Chloride 1,000 mls/hr IV 09:00 09:20 10/03/18 09:59 Ondansetron 4 mg ONCE STAT 10/03/18 DC 10/03/18 HCl (Zofran IV 09:00 09:20 Inj) 10/03/18 09:02 Famotidine 20 mg ONCE STAT 10/03/18 DC 10/03/18 (Pepcid Iv) IV 09:00 09:20 10/03/18 09:02 Ketorolac 30 mg ONCE STAT 10/03/18 DC 10/03/18 Tromethamine IV 09:00 09:20 (Toradol) 10/03/18 09:02 IV Flush 10 ml STK-MED 10/03/18 DC (NS 10 ml) ONCE .ROUTE 10:06 10/03/18 10:07 Sodium 100 ml @ ud STK-MED 10/03/18 DC Chloride ONCE .ROUTE 10:06 10/03/18 10:07 Iohexol 150 ml STK-MED 10/03/18 DC (Omnipaque ONCE .ROUTE 10:06 300mg/ ml) 10/03/18 10:07 Procedures/MDM DIAGNOSTIC IMAGING REPORT Patient: RAMO DUTTON : 1980 Age: 38 Sex: F MR #: [id number] DOS: 10/03/18 0900 Ordering MD: TERRY PENA PA-C Location: [facility] Room/Bed: PROCEDURE: CT abdomen and pelvis with contrast. CLINICAL INDICATION: abdominal pain TECHNIQUE: CT scan of the abdomen and pelvis with contrast was performed on a multi-slice CT scanner . The patient was scanned after administration of 90 cc of Omnipaque-300 intravenous contrast. Sagittal and coronal reformatted images were obtained from the axial source images. One or more of the following dose reduction techniques were used: - Automated exposure control. - Adjustment of the mA and/or kV according to patient size. - Use of iterative reconstruction technique. DICOM images are available DLP 677 mGycm. CTDIvol 13 mGy COMPARISON: 01/20/2015 FINDINGS: Lower thorax:The lung bases are clear. Liver: There is uniform enhancement of the liver with no focal lesion. The portal vein is intact without thrombus. Biliary: The gallbladder is unremarkable without inflammation. No biliary dilatation. Pancreas: Homogeneous density and enhancement of the pancreas without visible focal lesion or cystic abnormality. There is no pancreatic ductal dilatation. Spleen: Unremarkable without enlargement or focal lesion. Adrenal Glands: The adrenal glands are within normal limits without mass. Urinary: The kidneys are symmetric in size bilaterally with symmetric enhancement. There are no visible renal or ureteral stones. There is no hydronephrosis. Gastrointestinal: There is no bowel obstruction or focal bowel inflammation. The appendix is unremarkable. There is fecal filled colon. Lymph nodes: There are no enlarged lymph nodes. Vascular: The aorta is unremarkable. Peritoneum/mesentery: There is no free air. Reproductive organs: There is a heterogeneous appearance of the uterus with several calcific foci at the fundus and at the right side of the uterus and this appears overall stable from prior exam and some of these appear pedunculated. Follicular changes seen within the ovaries bilaterally. Trace fluid is seen within the cul-de-sac of indeterminate significance. Musculoskeletal: There is no acute osseous abnormality Other: None IMPRESSION: Multi fibroid uterus is again seen with partially calcified masses in some of these are again pedunculated in appearance. No evidence of bowel obstruction or inflammation. There is no appendicitis. There is a fecal filled colon. MDM: 38-year-old female presenting with left flank pain. I have low suspicion for infectious process. Urinalysis is within normal limits. I have low avalos spicion for acute abdominal emergency. I have low suspicion for nephrolithiasis. Patient is discharged with strict ER precautions. I have low suspicion for lumbar back fracture or dislocation. Patient likely is muscular skeletal strain. Patient is discharged with strict ER precautions and told to follow-up with primary care within 1 to 2 days for close evaluation. All questions answered at discharge Departure Diagnosis: Primary Impression: Back pain Condition: Stable Patient Instructions: Back Pain (Acute Or Chronic), Flank Pain, Uncertain Cause Referrals: [facility] YOU HAVE RECEIVED A MEDICAL SCREENING EXAM AND THE RESULTS INDICATE THAT YOU DO NOT HAVE A CONDITION THAT REQUIRES URGENT TREATMENT IN THE EMERGENCY DEPARTMENT. FURTHER EVALUATION AND TREATMENT OF YOUR CONDITION CAN WAIT UNTIL YOU ARE SEEN IN YOUR DOCTORS OFFICE WITHIN THE NEXT 1-2 DAYS. IT IS YOUR RESPONSIBILITY TO MAKE AN APPOINTMENT FOR FOLOW-UP CARE. IF YOU HAVE A PRIMARY DOCTOR --you should call your primary doctor and schedule an appointment IF YOU DO NOT HAVE A PRIMARY DOCTOR YOU CAN CALL OUR PHYSICIAN REFERRAL HOTLINE AT IF YOU CAN NOT AFFORD TO SEE A PHYSICIAN YOU CAN CHOSE FROM THE FOLLOWING [facility] CLINICS [facility] [address] [facility] [address] [facility] [facility] [address] [facility] [facility] [address] [facility] [address] [facility]. [facility]. [address] Additional Instructions: FOLLOW UP WITH YOUR PRIMARY CARE PHYSICIAN TOMORROW.Return to this facility if you are not improving as expected. AYDEE PENA PA-C Oct 03, 2018 11:20
== END 2018-10-03 10:54 | disposition home or self-care (01) ==
LOC: FTE 08:34
DX: M54.5 Low back pain (principal)
CPT/HCPCS: 36415; 74177; 80053; 81001; 81025; 83690; 85025; 96361; 96374; 96375; J1885; J2405; J7030; Q9967; Z7502; Z7610; 81003